=== PATIENT | male | born 1950 | race Caucasian/White ===

== ENCOUNTER 2017-01-03 07:43 | Emergency (ER) | payer BC ==
[2017-01-03] MEDS ORDERED: Ketorolac INJ* 30 MG/ML 1 ML VIAL IV PUSH ONE (07:56)
[2017-01-03] MEDS ORDERED: Morphine INJ* 4 MG/ML 1 ML SYRINGE IV ONE (07:56)
[2017-01-03] MEDS ORDERED: Orphenadrine Citrate IV* 30 MG/ML 2 ML VIAL IV ONE (07:56)
[2017-01-03] MEDS ORDERED: Dexamethasone IV* 4 MG/ML 5 ML VIAL (20 MG) IVPB ONE (07:56)
[2017-01-03] MEDS ORDERED: NS 0.9% 1000 ML* 1,000 ML IV SCH (08:00)
[2017-01-03 08:33] LABS: Hematocrit 47 % (42-52); Hemoglobin 16.1 g/dl (14.0-18.0); Mean Corpuscular HGB Conc 34 g/dl (31-36); Mean Corpuscular Hemoglobin 30 pg (27-31); Mean Corpuscular Volume 87 fL (80-94); Mean Platelet Volume 8 um3 (7.4-10.4); Red Blood Count 5.42 10^6/ul (4.0-5.4); Red Cell Distribution Width 13 % (10.5-15)
[2017-01-03 08:44] LABS: Albumin 4.3 g/dL (3.2-5.2); EGFR Non-African American 101.1 (>60); Globulin 2.2 g/dL (2-4); Potassium 3.8 mmol/L (3.5-5.0); Total Bilirubin 1.2 mg/dL (0.2-1.0); Total Protein 6.5 g/dL (6.4-8.9)
--- NOTE | 2017-01-03 09:00 | RAD ---
INDICATION: Low back pain. Chronic L5 spondylolysis with anterolisthesis COMPARISON: Lumbar spine December 14, 2013 TECHNIQUE: Noncontrast axial source images was performed from the thoracolumbar junction to the sacrum. Coronal and and sagittal reformatted images were generated. FINDINGS: Vertebrae: There is no fracture or acute focal bony lesion. There is spurring with degenerative endplate change and moderate disc space narrowing with vacuum disc phenomena at L3-L4, L4-L5, and L5-S1. Alignment: 8 mm anterolisthesis L5 on S1, unchanged. The remaining lumbar vertebrae are normally aligned. Central Canal: There are no significant CT abnormalities of the central canal or foramina. MR imaging is a more sensitive method to evaluate the canal and foramina. Intervertebral disc spaces: As above. The remaining disc spaces are well-maintained.. Soft tissues: The paravertebral soft tissues are normal. Other: There is retroperitoneal lymph node dissection. There are multiple partially fatty replaced retroperitoneal lymph nodes appearing less conspicuous than at the time of earlier MR imaging. 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 NO SIGNIFICANT CANAL OR FORAMINAL COMPROMISE ON CT IMAGING. CONSIDER MR IMAGING FOR RADICULAR SYMPTOMS
[2017-01-03 09:03] LABS: C Reactive Protein 1.75 mg/L (< 5.00)
[2017-01-03 12:15] VITALS: BP 144/72
[2017-01-03] MEDS ORDERED: fentaNYL* 50 MCG/ML 2 ML VIAL (100 MCG VIAL) IV SLOW PU ONE (12:23)
--- NOTE | 2017-01-03 15:07 | ED ---
Mouna Jacobson Alfonso, scribed for Jono Nath MD on 01/03/17 at 0754 . Back Pain - HPI Summary HPI Summary: This patient is a 66 year old M presenting to [facility] with a chief complaint of back pain since one week ago. Pt reports there is a pain in between my legs for a while. The pain is worse in his right leg. The CC is described as sharp. Pt rates the pain 9/10 in severity. Symptoms aggravated and alleviated by nothing. Pt denies fever, chills, CP, abd pain, nausea, vomiting, and bowel symptoms. He reports I have been going to a chiropractor for a month and it got better but now it is getting worse. Patient is s/p radical prostatectomy, urethral stricture, and left total hip arthroplasty. - History of Current Complaint Chief Complaint: EDBackInjuryPain Stated Complaint: BACK PAIN Hx Obtained From: Patient Onset/Duration: Sudden Onset, Lasting Weeks - 1, Worse Since Onset/Duration: Started Minutes Ago, Started Weeks Ago - 1, Worse Since Timing: Constant Back Pain Location: Is Diffuse Severity Initially: Moderate Severity Currently: Moderate Pain Intensity: 9 Pain Scale Used: 0-10 Numeric Character: Sharp Aggravating Symptom(s): Nothing Alleviating Symptom(s): Nothing Associated Signs And Symptoms: Positive: Other - Pt denies fever, chills, CP, abd pain, nausea, vomiting, and bowel symptoms. - Allergies/Home Medications Allergies/Adverse Reactions: Allergies Allergy/AdvReac Type Severity Reaction Status Date / Time No Known Allergies Allergy Verified 01/03/17 08:00 PMH/Surg Hx/FS Hx/Imm Hx Endocrine/Hematology History: Reports: Hx Diabetes, Other Endocrine/ Hematological Disorders - Non Hodgkins Lymphoma Cardiovascular History: Reports: Hx Hypertension Denies: Hx Pacemaker/ICD, Other Cardiovascular Problems/Disorders Respiratory History: Denies: Hx Asthma GI History: Reports: Hx Hiatal Hernia History: Reports: Hx Benign Prostatic Hyperplasia - Prostate Cancer Denies: Hx Renal Disease Musculoskeletal History: Reports: Hx Arthritis, Hx Back Problems Sensory History: Denies: Hx Contacts or Glasses, Hx Hearing Aid Opthamlomology History: Denies: Hx Contacts or Glasses Psychiatric History: Denies: Hx Panic Disorder - Cancer History Cancer Type, Location and Year: MELANOMA, PROSTATE, LYMPHOMA Hx Chemotherapy: Yes Hx Radiation Therapy: Yes - PROSTATE - Surgical History Surgery Procedure, Year, and Place: ESOPHOGEAL TIGHTENING, PROSTECTOMY, RT ARM SKIN MELONOMA, TONSILS Hx Anesthesia Reactions: No Infectious Disease History: Denies: Hx Hepatitis, Hx Human Immunodeficiency Virus (HIV), Hx of Known/ Suspected MRSA, Hx Shingles, Hx Tuberculosis, Hx Known/Suspected VRE, Hx Known/ Suspected VRSA, History Other Infectious Disease, Traveled Outside the [place] in Last 30 Days - Family History Known Family History: Positive: Other - Cancer Negative: Cardiac Disease, Diabetes - Social History Alcohol Use: Occasionally Alcohol Amount: 6 PER WEEK Substance Use Type: Reports: None Smoking Status (MU): Never Smoked Tobacco Have You Smoked in the Last Year: No Review of Systems Constitutional: Negative Negative: Chest Pain Positive: Other - Negative bowel symptoms. Negative: Abdominal Pain, Vomiting, Nausea Positive: Other - Positive back pain, and leg pain worse in right leg. All Other Systems Reviewed And Are Negative: Yes Physical Exam - Summary Physical Exam Summary: General: Patient is a well developed male without any distress that is laying comfortably in the stretcher. Skin: [place], warm, dry HEAD AND FACE: No signs of trauma. EYES: PERRLA, EOMI x 2. EARS: Hearing grossly intact. MOUTH: Oropharynx within normal limits. NECK: Supple, trachea is midline, no adenopathy, no JVD. CHEST: Symmetric, no tenderness at palpation LUNGS: CTA bilaterally, no rales, rhonchi or wheezing CVS: RRR, no murmur, rub, or gallop ABDOMEN: soft and Nontender without masses, no guarding or rebound. Bowel sounds are active. No Hepato-splenomegaly. No signs of inguinal hernias. BACK: Patient walked into the ED room with symmetric ambulation, No signs of limping, antalgic, able to bear weight. No signs of trauma, no soft tissue or muscle tenderness, positive spasm in the Paraspinal muscles of the (lumbar) spine. No masses palpated. No CVAT, no flank ecchymosis . No sacroiliac notch tenderness, No saddle anesthesia ROM: flexion/ extension/ lateral bending and rotation are decreased secondary to pain. Straight Leg Raise: positive in the RLE. Patellar reflexes: brisk, symmetric Muscle strength lower extremities. Dorsiflexion/ plantar flexion of ankles w/in normal limits. Lower extremities: Femoral, popliteal, posterior tibial, and pedal pulses with in normal, Rectal: Patient refused the exam. Triage Information Reviewed: Yes Vital Signs On Initial Exam: Initial Vitals Temp Pulse Resp BP Pulse Ox 98.5 F 83 24 141/90 100 01/03/17 07:44 01/03/17 07:44 01/03/17 07:44 01/03/17 07:44 01/03/17 07:44 Vital Signs Reviewed: Yes Diagnostics - Vital Signs Vital Signs Temp Pulse Resp BP Pulse Ox 01/03/17 07:44 98.5 F 83 24 141/90 100 - Laboratory Result Diagrams: 01/03/17 08:15 01/03/17 08:15 Lab Statement: Any lab studies that have been ordered have been reviewed, and results considered in the medical decision making process. - CT Lumbar Spine CT CT Interpretation Completed By: Radiologist - MULTILEVEL DEGENERATIVE DISC DISEASE DESCRIBED WITH CHRONIC L5 SPONDYLOLYSIS WITH A GRADE 1 ANTEROLISTHESIS. NO SIGNIFICANT CANAL OR FORAMINAL COMPROMISE ON CT IMAGING. CONSIDER MR IMAGING FOR RADICULAR SYMPTOMS Re-Evaluation - Re-Evaluation First Eval Re-Evaluation Time: 09:50 Change: Improved Comment: Pt reports symptoms have improved in the ED course with treatment. He is now better able to move and lie comfortably. Second Eval Re-Evaluation Time: 11:19 Change: Improved Comment: Pt is feeling better but still in pain Third Eval Re-Evaluation Time: 12:20 Change: Worse Comment: Patient went to the bathroom and reports the pain has returned 10/10 in severity. Back Pain Course/Dx - Course Course Of Treatment: This patient is a 66 year old M presenting to [facility] with a chief complaint of back pain since one week ago. Pt reports there is a pain in between my legs for a while. The pain is worse in his right leg. The CC is described as sharp. Pt rates the pain 9/10 in severity. Symptoms aggravated and alleviated by nothing. Pt denies fever, chills, CP, abd pain, nausea, vomiting, and bowel symptoms. He reports I have been going to a chiropractor for a month and it got better but now it is getting worse. Patient is s/p radical prostatectomy, urethral stricture, and left total hip arthroplasty. Assessment/Plan: Test results without any significant abnormalities expect for sodium of 132 and glucose of 167. Lumbar spine CT reveals MULTILEVEL DEGENERATIVE DISC DISEASE DESCRIBED WITH CHRONIC L5 SPONDYLOLYSIS WITH A GRADE 1 ANTEROLISTHESIS. NO SIGNIFICANT CANAL OR FORAMINAL COMPROMISE ON CT IMAGING. CONSIDER MR IMAGING FOR RADICULAR SYMPTOMS. In the ED course, patient given Decadron, Ketorolac, Norflex, and morphine for the pain. Patient reports the pain is still present especially after ambulating to the bathroom. Therefore , he was given a dose of Fentanyl and now reports the pain is 2/10. Patient is able to ambulate and will be discharge home with PCP follow up and medication for pain. Patient is hemodynamically and A&Ox3. - Diagnoses Differential Diagnosis/HQI/PQRI: Positive: Fracture, Herniated Disc, Strain, Sprain Provider Diagnoses: Back pain Discharge - Discharge Plan Condition: Stable Disposition: HOME Prescriptions: Ibuprofen TAB* [Motrin TAB* 600 MG] 600 mg PO Q8H PRN #30 tab PRN Reason: Pain Methocarbamol [Robaxin-750 MG TAB] 750 mg PO TID #12 tab Oxycodone W/ Acetaminophen [Percocet 7.5-325 mg (NF)] 1 tab PO Q6H PRN #12 tab MDD 4 PRN Reason: Pain Patient Education Materials: Acute Low Back Pain (ED) Referrals: Abiel Fallon MD [Primary Care Provider] - The documentation as recorded by the Mouna gailndo Alfonso accurately reflects the service I personally performed and the decisions made by Portillo barksdale Walter, MD.
== END 2017-01-03 13:35 | disposition home or self-care (01) ==
LOC: ED 07:43
DX: M54.9 Dorsalgia, unspecified (principal); E11.9 Type 2 diabetes mellitus without complications; I10 Essential (primary) hypertension; Z85.46 Personal history of malignant neoplasm of prostate; M51.36 Other intervertebral disc degeneration, lumbar region; M43.06 Spondylolysis, lumbar region
CPT/HCPCS: 36415; 72131; 80053; 85025; 86140; 96361; 96374; 96375; 99283; J1885; J2270; J2360; J3010

== ENCOUNTER 2023-06-20 07:19 | Observation (INO) ==
[~2023-06-20 07:19] MED LIST: Buffered Lidocaine 1% SYRIN 1 ml INTRADERM ONE; Famotidine IV 10 MG/ML 2 ml VIAL (20 mg) IV ONE; Gelfoam Sponge SIZE 100 SPONGE ONE; Lactated Ringers 1000 ml BAG 1,000 ML IV SCH; Lidocaine 1.5% EPI 1:200,000 30 ML SDV ONE; Lidocaine 2% PF 5 ML VIAL ONE; Midazolam 2 mg/2 ml VIAL 1 mg/ml 2 ml VIAL (2 mg) ONE; Propofol 10 MG/ML 20 ML BTL ONE; Rocuronium 50 mg VIAL 10 mg/ml 5 ml VIAL (50 mg) ONE; Thrombin 5,000 UNITS(BOVINE) for Ultrasound Guided Pseudoaneursym ONE; ceFAZolin VIAL VIAL ONE; fentaNYL 250 mcg/5 ml 50 MCG/ML 5 ml VIAL (250 MCG) ONE
[2023-06-20] MEDS ORDERED: Lidocaine 1% w EPI 1:100,000 MDV 20 ML VIAL ONE (07:22)
[2023-06-20] MEDS ORDERED: Chlorhexidine MOUTHWASH 0.12% 15 ML UDC ONE (07:55)
[2023-06-20] MEDS ORDERED: Buffered Lidocaine 1% SYRIN 1 ml ONE (08:08)
[2023-06-20] MEDS ORDERED: ceFAZolin 2 GM PREMIX 2 GM/50 ML BAG ONE (08:15)
[2023-06-20] MEDS ORDERED: Famotidine IV 10 MG/ML 2 ml VIAL (20 mg) ONE (08:16)
[2023-06-20 08:30] LABS: Rapid COVID-19 Molecular Undetected (Undetected)
[2023-06-20] MEDS ORDERED: Dexamethasone IV 4 MG/ML VIAL 1 ml VIAL ONE (09:04)
[2023-06-20] MEDS ORDERED: Ondansetron 4 mg VIAL 2 MG/ML 2 ml VIAL ONE (09:04)
[2023-06-20] MEDS ORDERED: Morphine 2 MG/ML SYRINGE IV PRN (10:05)
[2023-06-20] MEDS ORDERED: Senna TAB 8.6 mg TAB PO PRN (10:05)
[2023-06-20] MEDS ORDERED: Benzocaine/Menthol LOZ MT PRN (10:05)
[2023-06-20] MEDS ORDERED: Magnesium Hydroxide LIQ 30 ML UDC PO PRN (10:05)
[2023-06-20] MEDS ORDERED: Dextran 70/Hypromellose Tears Eye Drops 15 ml BTL (for Artificials Tears) BOTH EYES PRN (10:05)
[2023-06-20] MEDS ORDERED: Ondansetron 4 mg VIAL 2 MG/ML 2 ml VIAL IV PRN (10:05)
[2023-06-20] MEDS ORDERED: Calcium Carb (TUMS) 500 mg CHEW TAB PO PRN (10:05)
[2023-06-20] MEDS ORDERED: Phenol 1.4% Throat Spray BTL MT PRN (10:05)
[2023-06-20] MEDS ORDERED: HYDROmorphone 1 MG/1 ML SYRINGE IV PRN (10:13)
[2023-06-20] MEDS ORDERED: fentaNYL 100 mcg/2 ml 50 MCG/ML VIAL IV PRN (10:13)
[2023-06-20] MEDS ORDERED: Naloxone 0.4 mg VIAL 0.4 mg/ml 1 ml VIAL IV PRN (10:13)
[2023-06-20] MEDS ORDERED: Lactated Ringers 1000 ml BAG 1,000 ML IV SCH (11:00)
[2023-06-20] MEDS: HYDROcodone/ACETAMIN 5/325 mg TAB PO PRN ×2 (14:20→20:52)
[2023-06-20] MEDS ORDERED: Insulin GLARGINE 100 un/ml 10 ml VIAL SUBCUT SCH (21:00)
[2023-06-21] MEDS: HYDROcodone/ACETAMIN 5/325 mg TAB PO PRN ×2 (06:31→10:11)
[2023-06-21 10:03] VITALS: BP 115/69
== END 2023-06-21 10:20 | disposition home or self-care (01) ==
LOC: OR 07:19 → SSU 07:19
PROVIDERS: ADMIT Neurological Surgery; ATTEND Neurological Surgery